=== PATIENT | female | born 1990 | race African-American/Black ===

== ENCOUNTER 2017-12-01 09:29 | Emergency (ER) | payer BC, OTHER ==
[2017-12-01 09:38] VITALS: BP 125/78; PULSE 93; TEMP 98.7; BMI 27.4
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
== END 2017-12-01 13:01 | disposition home or self-care (01) ==
LOC: JERFT 09:29
DX: O26.892 Other specified pregnancy related conditions, second trimester (principal); Z3A.17 17 weeks gestation of pregnancy; O20.0 Threatened abortion
CPT/HCPCS: 76815; 99281-25

== ENCOUNTER 2017-12-22 18:05 | Emergency (ER) | payer BC, OTHER ==
[2017-12-22 18:35] VITALS: BP 136/85; PULSE 107; TEMP 98.4; BMI 29.8
[2017-12-22] MEDS ORDERED: ACETAMINOPHEN 160 MG/5 ML *Children Solution PO ONE (18:42)
--- NOTE | 2017-12-22 18:43 | PDOC ---
Rapid Medical Evaluation Chief Complaint: Pain, Acute Time Seen by Provider: 12/22/17 18:33 Medical Evaluation: Allergies Allergy/AdvReac Type Severity Reaction Status Date / Time No Known Allergies Allergy Verified 12/01/17 09:33 Vital Signs Temp Pulse Resp BP Pulse Ox 98.4 F 107 H 20 136/85 99 12/22/17 18:32 12/22/17 18:32 12/22/17 18:32 12/22/17 18:32 12/22/17 18:32 12/22/17 18:43 I have performed a brief in-person evaluation of this patient. The patient presents with a chief complaint of: Severe left neck pain. States slept wrong and woke up with severe spasm to the left Pertinent physical exam findings: Severe spasm to the left sternocleidomastoid muscles, and inability to turn neck passed approximately 30. All to SENIOR FINANCIAL REPORTING ACCOUNTANT to advice for medication as patient is 20 weeks . I have ordered the following: Tylenol The patient will proceed to the ED for further evaluation. 12/22/17 22:42 Discharge Disposition - Diagnosis Acute muscle stiffness of neck - Discharge Dispostion Disposition: HOME Condition at time of disposition: Stable - Prescriptions Prescriptions: Indomethacin [Indocin -] 50 mg PO TID PRN #6 capsule PRN Reason: Pain - Referrals Referrals: Ahsan Rivera MD [Staff Physician] - - Patient Instructions Additional Instructions: apply warm compresses to the area of pain every 2hrs for 20 minutes you can take indomethacin as directed as per the OB net solutions architect for your doctor at [facility] please follow with your OB and your PMD next week or with the orthopedist return to the ER if any worsening symptoms - Post Discharge Activity
--- NOTE | 2017-12-22 19:26 | PDOC ---
History of Present Illness - General Chief Complaint: Pain, Acute Stated Complaint: NECK PAIN Time Seen by Provider: 12/22/17 18:33 History Source: Patient Exam Limitations: No Limitations - History of Present Illness Initial Comments: 12/22/17 19:33 27 yr female with c/o pain to the left side of her neck after sleeping on 2 pillows. no fever no sore throat or chills. pt is 20 weeks no abd pain or bleeding or urianry complaints. followed by Fede OPERATIONS AND MAINTENANCE SUPERVISOR 12/22/17 19:34 Severity: reports: mild Past History - Past Medical History Allergies/Adverse Reactions: Allergies Allergy/AdvReac Type Severity Reaction Status Date / Time No Known Allergies Allergy Verified 12/01/17 09:33 Home Medications: Ambulatory Orders Indomethacin [Indocin -] 50 mg PO TID PRN #6 capsule 12/22/17 Asthma: Yes COPD: No - Immunization History Immunization Up to Date: No - Suicide/Smoking/Psychosocial Hx Smoking History: Never smoked Have you smoked in the past 12 months: No Hx Alcohol Use: No Drug/Substance Use Hx: No Substance Use Type: None Review of Systems - Review of Systems Able to Perform ROS?: Yes Is the patient limited Israeli proficient: No Constitutional: No: Symptoms Reported HEENTM: No: Symptoms Reported Respiratory: No: Symptoms reported Cardiac (ROS): No: Symptoms Reported ABD/GI: No: Symptoms Reported : No: Symptoms Reported Musculoskeletal: Yes: Symptoms Reported Integumentary: No: Symptoms Reported *Physical Exam - Vital Signs Last Vital Signs Temp Pulse Resp BP Pulse Ox 98.4 F 107 H 20 136/85 99 12/22/17 18:32 12/22/17 18:32 12/22/17 18:32 12/22/17 18:32 12/22/17 18:32 - Physical Exam General Appearance: Yes: Nourished, Appropriately Dressed HEENT: positive: EOMI, HANNAH, Normal ENT Inspection, TMs Normal, Pharynx Normal. negative: Nasal Congestion, Rhinorrhea Neck: positive: Supple, Tender lateral (left side lateral sterneclomastoid muscle spasm and tender to touch). negative: Tender, Rigidity, Tender midline Respiratory/Chest: positive: Lungs Clear, Normal Breath Sounds. negative: Chest Tender Cardiovascular: positive: Regular Rhythm, Regular Rate Gastrointestinal/Abdominal: positive: Normal Bowel Sounds, Soft, Other (gravid uterus ). negative: Tender Lymphatic: negative: Adenopathy Musculoskeletal: positive: Normal Inspection Extremity: positive: Normal Capillary Refill, Normal Inspection, Normal Range of Motion Integumentary: positive: Normal Color, Dry, Warm Neurologic: positive: Fully Oriented, Normal Response, Motor Strength 5/5 ED Treatment Course - Medications Given in the ED: ED Medications Discontinued Medications Generic Name Dose Route Start Last Admin Trade Name Freq PRN Reason Stop Dose Admin Acetaminophen 650 mg 12/22/17 18:42 12/22/17 18:44 Tylenol *Children Solution* - PO 12/22/17 18:43 20.3 ml ONCE ONE Administration Medical Decision Making - Medical Decision Making 12/22/17 19:30 cc: stiff neck left side woke up after a nap this morning pt has applied a warm compress prior to arrival no meds taken spoke to at 1924 covering for pt's OB at [facility] [phone] case discussed and states to give one percocet now. dc with 2 days of indomethacin. pt agrees with the plan of care pt understands to follow up with her asp net programmer on Monday or Monday for follow up. 12/22/17 20:01 *DC/Admit/Observation/Transfer Diagnosis at time of Disposition: Acute muscle stiffness of neck - Discharge Dispostion Disposition: HOME - Prescriptions Prescriptions: Indomethacin [Indocin -] 50 mg PO TID PRN #6 capsule PRN Reason: Pain - Referrals Referrals: Ahsan Rivera MD [Staff Physician] - - Patient Instructions Additional Instructions: apply warm compresses to the area of pain every 2hrs for 20 minutes you can take indomethacin as directed as per the OB steam pan sponger for your doctor at [facility] please follow with your OB and your PMD next week or with the orthopedist return to the ER if any worsening symptoms - Post Discharge Activity
== END 2017-12-22 20:00 | disposition home or self-care (01) ==
LOC: JERFT 18:05 → JER 18:05 → JERFT 20:00
DX: M43.6 Torticollis (principal)
CPT/HCPCS: 99281-25